=== PATIENT | male | born 1940 | race Caucasian/White ===

== ENCOUNTER 2021-07-03 07:40 | Inpatient (IN) | payer MEDICARE, BC ==
[~2021-07-03] VITALS: Ht 180.3 cm; Wt 84.1 kg
[~2021-07-03 07:40] MED LIST: ASPIRIN E.C. 8181 MG PO; CIPRO 500MG TA500 MG PO; CLOPIDOGREL; FISH OIL1 POW; FLOMAX0.4 MG PO; PREDNISONE20 MG PO; PROSCAR; SPIRIVA INH IH; TOPROL XL 25MG25 MG PO; VENTOLIN0.09 MG IH; ZETIA10 MG PO; [UNRECOGNIZED DRUG - OTHER]
[2021-07-03] MEDS ORDERED: TRELEGY ELLIPT1 EACH IH ×2 (08:07→20:33)
[2021-07-03] MEDS ORDERED: 00186-0370-20 (08:08)
[2021-07-03 08:49] LABS: BASO % 0.4 % (0.0-2.0); EOS # 0.1 (0.0-0.7); EOS % 0.5 % (0-4.0); GRAN # 8.7 (1.4-6.5); GRAN % 85.1 % (42.2-75.2); HEMATOCRIT 40.5 % (42.0-52.0); HEMOGLOBIN 13.2 g/dl (13.5-18.0); LYMPH # 0.6 (1.2-3.4); LYMPH % 5.8 % (20.0-51.0); MEAN CELL VOLUME 97 fl (80.0-100.0); MEAN CORPUSCULAR HEMOGLOBIN 32 pg (27.0-31.0); MEAN CORPUSCULAR HGB CONC 33 g/dl (33.0-37.0); MEAN PLATELET VOLUME 10.5 fl (7.4-10.4); MONO # 0.8 (0.1-0.6); MONO % 7.6 % (1.7-9.3); PLATELET COUNT 174 K/mm3 (130-400); RED BLOOD COUNT 4.17 M/mm3 (4.20-5.60); REDCELL DISTRIBUTION WIDTH-CV 14.5 % (11.5-14.5)
[2021-07-03 09:01] LABS: BILIRUBIN,TOTAL 1.3 mg/dL (0.0-1.0); CALCIUM 9.1 mg/dL (8.4-10.2); CREATININE, serum 1.23 (0.66-1.25); POTASSIUM 4.7 mmol/L (3.4-5.0); TOTAL PROTEIN 7.4 gm/dL (6.4-8.2)
[2021-07-03 09:19] LABS: TROPONIN-I 0.036 ng/mL (0.000-0.035)
[2021-07-03] MEDS ORDERED: PREDNISONE20 MG PO (13:49)
[2021-07-03] MEDS ORDERED: DOXYCYCLINE 10100 MG PO (13:49)
[2021-07-03 18:18] VITALS: BP 114/91; PULSE 90; TEMP 97.5
--- NOTE | 2021-07-03 18:53 | NUR ---
REPORT RECIEVED FROM MARÍA ELENA CHUN. PATIENT IN ROOM. VSS. CALL LIGHT IN REACH.
[2021-07-03] MEDS ORDERED: PROAIR HFA0.09 MG/AC IH (20:15)
[2021-07-03] MEDS ORDERED: WELLBUTRIN XL150 MG PO (20:16)
[2021-07-03] MEDS ORDERED: PLAVIX 75MG TAB75 MG PO (20:17)
[2021-07-03] MEDS ORDERED: MYCELEX10 MG/TAB MM (20:18)
[2021-07-03] MEDS ORDERED: LANOXIN 0.120.125 MG PO (20:23)
[2021-07-03] MEDS ORDERED: LASIX 20MG TABL20 MG PO (20:23)
[2021-07-03] MEDS ORDERED: TOPROL XL 25MG25 MG PO (20:24)
[2021-07-03] MEDS ORDERED: COZAAR 25MG25 MG/TAB PO (20:24)
[2021-07-03] MEDS ORDERED: SINGULAIR 110 MG/TAB PO (20:26)
[2021-07-03] MEDS ORDERED: MYSOLINE 5050 MG/TAB PO (20:27)
[2021-07-03] MEDS ORDERED: FLOMAX 0.40.4 MG/CAP PO (20:27)
[2021-07-03] MEDS ORDERED: VITAMIN D31000 I1 PO (20:35)
[2021-07-03 20:40] VITALS: BP 100/45; PULSE 80; TEMP 97.9
[2021-07-04 00:26] VITALS: BP 109/48; PULSE 80; TEMP 97.9
[2021-07-04 04:13] VITALS: BP 96/49; PULSE 79; TEMP 97.9
--- NOTE | 2021-07-04 05:32 | NUR ---
PT 4.5L OXYMASK, 02 NEEDS INCREASED FROM 3L TO 4.5 OVER NIGHT. PT DENIES PAIN,N,V,D. PT CONTINUES WITH A DRY COUGH. MEDICATIONS ADMINISTERED ORDERED. PT EXPRESSES NO ADDITIONAL NEEDS AT THIS TIME. CALL LIGHT WITHIN REACH.
[2021-07-04 07:17] VITALS: BP 119/62; PULSE 80; TEMP 97.6
--- NOTE | 2021-07-04 09:06 | NUR ---
SCHEDULED MEDICATIONS GIVEN. SHIFT ASSESSMENT PREFORMED. PATIENT IS CURRENTLY REQUIRING 5L OF 02 VIA NASAL CANNULA. SOB AT REST NOTED. PATIENT CURRENTLY SATING 97%. PATIENT A&O. VSS. PATIENT DENIES ANY PAIN, DISCOMFORT, OR FURTHER NEEDS AT THIS TIME. CALL LIGHT IN REACH.
[2021-07-04 10:11] LABS: HEMATOCRIT 38.8 % (42.0-52.0); HEMOGLOBIN 12.8 g/dl (13.5-18.0); MEAN CELL VOLUME 95 fl (80.0-100.0); MEAN CORPUSCULAR HEMOGLOBIN 31 pg (27.0-31.0); MEAN CORPUSCULAR HGB CONC 33 g/dl (33.0-37.0); MEAN PLATELET VOLUME 10.7 fl (7.4-10.4); PLATELET COUNT 177 K/mm3 (130-400); RED BLOOD COUNT 4.07 M/mm3 (4.20-5.60); REDCELL DISTRIBUTION WIDTH-CV 14.2 % (11.5-14.5)
[2021-07-04 10:16] LABS: CALCIUM 9.2 mg/dL (8.4-10.2); CHOLESTEROL RISK RATIO 3.6; CREATININE, serum 1.19 (0.66-1.25); POTASSIUM 4.3 mmol/L (3.4-5.0)
[2021-07-04 10:21] LABS: IRON,SERUM 48 ug/dL (35-150)
[2021-07-04 10:31] LABS: TOTAL IRON BINDING CAPACITY 283 ug/dL (261-462)
[2021-07-04 10:59] LABS: TSH w REFLEX 0.787 uIU/mL (0.350-4.940)
[2021-07-04 11:21] VITALS: BP 112/50; PULSE 80; TEMP 97.8
[2021-07-04 12:18] LABS: BAND 1 % (0-10); LYMPHOCYTE 8 % (20.0-51.0); NEUTROPHILS 90 % (42.0-75.2)
[2021-07-04 12:19] LABS: HYPOCHROMIA 1+; PLATELET ESTIMATE NORMAL (NORMAL)
--- NOTE | 2021-07-04 13:30 | NUR ---
Chaplain caro and offered support with patient.
[2021-07-04 15:45] VITALS: BP 112/53; PULSE 79; TEMP 98.4
--- NOTE | 2021-07-04 17:56 | NUR ---
PATIENT HAS HAD A GOOD DAY. CURRENTLY REQUIRING 4L OF O2 VIA OXY MASK. PATIENT DENIES ANY PAIN, DISCOMFORT, SOA, OR FURTHER NEEDS AT THIS TIME. VSS. CALL LIGHT IN REACH.
[2021-07-04 20:04] VITALS: BP 119/58; PULSE 80; TEMP 97.4
[2021-07-05 04:13] VITALS: BP 111/52; PULSE 68; TEMP 98.3
[2021-07-05 07:13] VITALS: BP 120/63; PULSE 79; TEMP 97.9
--- NOTE | 2021-07-05 07:56 | NUR ---
SCHEDULED MEDICATIONS GIVEN. SHIFT ASSESSMENT PREFORMED. PATIENT CURRENLTY REQUIRING 4.5 L OF 02 VIA NASAL CANNULA. PATIENT STATES THAT HE IS FEELING MUCH BETTER THIS AM. VSS. PATIENT DENIES ANY PAIN, DISCOMFORT, OR FURTHER NEEDS AT THIS TIME. CALL LIGHT IN REACH.
[2021-07-05 10:15] LABS: BASO % 0.1 % (0.0-2.0); GRAN # 9.9 (1.4-6.5); GRAN % 84.5 % (42.2-75.2); HEMATOCRIT 39.1 % (42.0-52.0); HEMOGLOBIN 12.6 g/dl (13.5-18.0); LYMPH # 0.8 (1.2-3.4); LYMPH % 6.4 % (20.0-51.0); MEAN CELL VOLUME 97 fl (80.0-100.0); MEAN CORPUSCULAR HEMOGLOBIN 31 pg (27.0-31.0); MEAN CORPUSCULAR HGB CONC 32 g/dl (33.0-37.0); MEAN PLATELET VOLUME 10.2 fl (7.4-10.4); MONO % 8.5 % (1.7-9.3); PLATELET COUNT 210 K/mm3 (130-400); RED BLOOD COUNT 4.05 M/mm3 (4.20-5.60); REDCELL DISTRIBUTION WIDTH-CV 14.4 % (11.5-14.5)
[2021-07-05 10:30] LABS: CALCIUM 9.1 mg/dL (8.4-10.2); CREATININE, serum 1.14 (0.66-1.25); POTASSIUM 4.2 mmol/L (3.4-5.0)
--- NOTE | 2021-07-05 13:56 | NUR ---
SW met with patient to complete intake. Patient provides that he lives alone in [facility]. Patient stated that his son Louie [phone] is his DPOA-HC. Patient provides that he does not utilize DME, is independent with ADL's and does not utilize HH services at this time. Patient provides that he just moved to the area recently and he believes that his PCP is Dr. Bird, pharmacy is [facility], and is able to afford his medications. Patient states that he plans to return to his home up [place] and has no concerns with doing so. SW will continue to follow. DC plan: home
[2021-07-05 15:48] VITALS: BP 114/60; PULSE 77; TEMP 97.8
--- NOTE | 2021-07-05 18:09 | NUR ---
PATIENT HAS HAD AN UNEVENTFUL DAY. PATIENT CURRENTLY REQUIRING 2L OF O2 VIA NASAL CANNULA. VSS. PATIENT DENIES ANY PAIN, DISOMFORT, OR FURTHER NEEDS AT THIS TIME. CALL LIGHT IN REACH.
[2021-07-05 20:16] VITALS: BP 102/52; PULSE 81; TEMP 98.5
[2021-07-05 22:36] LABS: ARTERIAL BLD GAS O2 SATURATION 93.6 % (92-100); ARTERIAL BLD GAS TCO2 CT 24.4; ARTERIAL BLOOD GAS BASE EXCESS -1.1 (-2-2); ARTERIAL BLOOD GAS HCO3 23.3 meq/L (22-26); ARTERIAL BLOOD GAS pH 7.41 (7.35-7.45)
[2021-07-06] VITALS (7 sets, daily range): BP systolic 91–134; BP diastolic 45–94; PULSE 80–86; TEMP 97.4–98.5
--- NOTE | 2021-07-06 02:09 | NUR ---
Patient alert and oriented. Patient reports feeling much better today. Patient currently on 2L oxygen via oxymask. Patient denies SOB or dyspnea. Breathing even and unlabored. All scheduled meds given per MAR. Call light within reach. Will continue to monitor.
--- NOTE | 2021-07-06 09:00 | NUR ---
Shift assessment complete. Pt sitting up on side of bed eating breakfast. A&Ox4. Heart RRR. Lungs CTA. Metoprolol XL and lasix held this morning per verbal order from Serena GILLESPIE due to BP of 91/59. Denies concerns at this time but hoping to go home today. Continuing to monitor.
--- NOTE | 2021-07-06 22:53 | NUR ---
Patient reports feeling much better today. Patient states that he is disappointed about not able to go home today. Patient is hoping that he discharge to home tomorrow. Patient currently on oxygen 2L via NC. VS stable. No acute respiratory distress noted. Patient reports not having BM for the last few days. PRN Colace given per JAN. Call light within reach. Will continue to monitor.
[2021-07-07 05:15] VITALS: BP 95/59; PULSE 80; TEMP 98.5
[2021-07-07 07:27] LABS: BASO % 0.3 % (0.0-2.0); EOS # 0.3 (0.0-0.7); EOS % 3.3 % (0-4.0); GRAN # 5.5 (1.4-6.5); GRAN % 69.5 % (42.2-75.2); HEMATOCRIT 38.7 % (42.0-52.0); HEMOGLOBIN 12.6 g/dl (13.5-18.0); LYMPH # 1.4 (1.2-3.4); LYMPH % 18.1 % (20.0-51.0); MEAN CELL VOLUME 97 fl (80.0-100.0); MEAN CORPUSCULAR HEMOGLOBIN 32 pg (27.0-31.0); MEAN CORPUSCULAR HGB CONC 33 g/dl (33.0-37.0); MEAN PLATELET VOLUME 10.3 fl (7.4-10.4); MONO # 0.7 (0.1-0.6); MONO % 8.3 % (1.7-9.3); PLATELET COUNT 198 K/mm3 (130-400); RED BLOOD COUNT 3.98 M/mm3 (4.20-5.60); REDCELL DISTRIBUTION WIDTH-CV 14.4 % (11.5-14.5)
[2021-07-07 07:52] VITALS: BP 123/58; PULSE 84; TEMP 98.5
[2021-07-07 07:56] LABS: CALCIUM 8.8 mg/dL (8.4-10.2); CREATININE, serum 0.94 (0.66-1.25); POTASSIUM 4.5 mmol/L (3.4-5.0)
--- NOTE | 2021-07-07 08:45 | NUR ---
SCHEDULED MEDICATIONS GIVEN. SHIFT ASSESSMENT PREFORMED. PATIENT CURRENTLY REQUIRING 2 L OF O2 VIA NASAL CANNULA. PATIENT DENIES ANY PAINT, DISCOMFORT, OR FURTHER NEEDS AT THIS TIME. CALL LIGHT IN REACH. VSS
[2021-07-07] MEDS ORDERED: ASPIRIN E.C. 8181 MG PO (09:15)
[2021-07-07] MEDS ORDERED: PRINIVIL5 MG PO (10:18)
[2021-07-07] MEDS ORDERED: B-121000 MCG PO (10:32)
--- NOTE | 2021-07-07 10:58 | NUR ---
composite layup worker met with patient to discuss discharge planning. Patient states he is and moved to [place], last week, from [place]. Patient is transferring care from Dr Chaves and Dr Bird. Dr Bird's office will not move patient's appointment up sooner. 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 Worker provided information on home health services and provided the [email or web address] home health share information. Patient chose [facility] and worker gave them a referral with faxed orders and clinical information. 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 Patient has home oxygen.
[2021-07-07 12:39] VITALS: BP 115/55; PULSE 82; TEMP 98.3
--- NOTE | 2021-07-07 13:03 | NUR ---
PATIENT DEEMED FIT FOR DISCHARGE. IV DC'D CATHETER INTACT, NO SIGNS OF PHLEBITIS. DISHARGE EDUCATION/INSTRUCTIONS GIVEN. PATIENT DENIES ANY QUESTIONS, CONCERNS, SOA, PAIN, DISCOMFORT, OR FURTHER NEEDS AT THIS TIME. VSS. PATIENT ESCORTED TO FROM BUILDING BY VIA [facility] STAFF VIA WHEELCHAIR. PATIENT TRANSPORTING SELF HOME.
== END 2021-07-07 13:05 | disposition home health service (06) | DRG 291 ==
LOC: COL.ER 07:40 → MEDICAL 14:27
PROVIDERS: Physician Assistant; Student in an Organized Health Care Education/Training Program; ADMIT Internal Medicine
DX: I50.23 Acute on chronic systolic (congestive) heart failure (principal); J96.21 Acute and chronic respiratory failure with hypoxia; J44.1 Chronic obstructive pulmonary disease with (acute) exacerbation; Z20.822 Contact with and (suspected) exposure to COVID-19; R73.9 Hyperglycemia, unspecified; T38.0X5A Adverse effect of glucocorticoids and synthetic analogues, initial encounter; I11.0 Hypertensive heart disease with heart failure; I95.9 Hypotension, unspecified; D51.9 Vitamin B12 deficiency anemia, unspecified; I25.10 Atherosclerotic heart disease of native coronary artery without angina pectoris; Z95.0 Presence of cardiac pacemaker; Z95.818 Presence of other cardiac implants and grafts; Z87.01 Personal history of pneumonia (recurrent); Z87.891 Personal history of nicotine dependence
CPT/HCPCS: 99222-AI; 99232-AI; 99239; J0696; J1650; J1815; J1940; J2920; J2930; Q9967